=== PATIENT | male | born 1990 | race Caucasian/White ===

== ENCOUNTER 2020-03-11 14:47 | Outpatient (REF) | payer OTHER, SELFPAY | END 2020-03-11 14:48 | disposition home or self-care (01) | LOC: HO.LAB 14:47 | PROVIDERS: Visit Provider Internal Medicine | DX: Z20.828 Contact with and (suspected) exposure to other viral communicable diseases (principal) | CPT/HCPCS: C9803; U0003 ==

== ENCOUNTER 2020-03-20 11:56 | Outpatient (REF) | payer OTHER, SELFPAY | END 2020-03-20 11:57 | disposition home or self-care (01) | LOC: HO.LAB 11:56 | PROVIDERS: Visit Provider Internal Medicine | DX: Z20.828 Contact with and (suspected) exposure to other viral communicable diseases (principal) | CPT/HCPCS: C9803; U0003 ==

== ENCOUNTER 2020-04-08 12:18 | Outpatient (REF) | payer OTHER, SELFPAY | END 2020-04-08 12:19 | disposition home or self-care (01) | LOC: HO.LAB 12:18 | PROVIDERS: Visit Provider Internal Medicine | DX: Z20.828 Contact with and (suspected) exposure to other viral communicable diseases (principal) | CPT/HCPCS: 36415; C9803; U0003 ==

== ENCOUNTER 2020-08-22 10:01 | Outpatient (REF) | payer OTHER, SELFPAY ==
[2020-08-22 12:10] LABS: MANUAL DIFF FLAG NO
[2020-08-22 12:17] LABS: Basophils Percent Auto 0.3 % (0-2); Eosinophils Absolute Auto 0.1 X10*3/uL (0.0-0.4); Hematocrit 43.7 % (42-52); Hemoglobin 14.6 g/dl (14.0-18.0); Imm Gran Abs Auto 0.01 X10*3/uL (0.00-0.03); Imm Gran Pct Auto 0.2 % (0.0-0.4); Lymphocytes Percent Auto 34.1 % (20-40); Mean Corpuscular HGB Conc 33.4 g/dl (31.0-36.0); Mean Corpuscular Hemoglobin 29.8 pg (27.0-33.0); Mean Corpuscular Volume 89.2 fL (80-98); Mean Platelet Volume 9.4 fL (9.4-12.4); Monocytes Absolute Auto 0.4 X10*3/uL (0.1-1.2); Monocytes Percent Auto 6.7 % (2-11); Neutrophils Absolute Auto 3.4 X10*3/uL (2.0-8.3); Neutrophils Percent Auto 57.7 % (45-73); Platelet Count 236 X10*3/uL (160-400); Red Cell Distribution Width 12.7 % (11.0-16.0); White Blood Count 5.9 X10*3/uL (4.8-10.8)
[2020-08-22 12:34] LABS: Estimated Average Glucose 97 mg/dL
[2020-08-22 12:36] LABS: Alanine Aminotransferase 25 U/L (0-40); Albumin Level 4.5 g/dL (3.5-5.0); Alkaline Phosphatase 77 U/L (39-117); Anion Gap 11 (12-20); Aspartate Amino Transferase 17 U/L (5-37); Bilirubin Total 0.6 mg/dL (0.0-1.0); Blood Urea Nitrogen 10 mg/dL (9-16); C Reactive Protein 0.43 mg/dL (< or = 0.50); Calcium 9.6 mg/dL (8.4-10.2); Carbon Dioxide 28 mmol/L (22-29); Chloride 104 mmol/L (96-108); Cholesterol 167 mg/dL; Estimated Glomerular Filt Rate > 60; Glucose Fasting 84 mg/dL (60-99); HDL Cholesterol 33 mg/dL; Iron 77 mcg/dL (45-160); LDL Cholesterol Calculated 114 mg/dl; Percent Iron Saturation 19 % (15-50); Potassium 4.3 mmol/L (3.3-5.1); Sodium 139 mmol/L (135-145); Total Iron Binding Capacity 405 mcg/dL (228-428); Total Protein 7.2 g/dL (6.5-8.0); Triglycerides 102 mg/dL; Unsaturated Iron Binding 328 ug/dL
[2020-08-22 12:59] LABS: Ferritin 34 ng/mL (20-250); TSH reflex Free T4 0.92 uIU/mL (0.32-4.0); Vitamin D 25-OH Total 29.8 ng/mL (>30)
[2020-08-22 13:09] LABS: Folate 9.8 ng/mL (> or = 4.0); Vitamin B12 280 pg/mL (200-900)
[2020-08-23 07:07] LABS: Insulin Level Total 18.4 uIU/mL
[2020-08-24 10:36] LABS: Calcium (PTHI) 9.6 mg/dL (8.6-10.3); PTHI 60 pg/mL (14-64)
[2020-08-26 02:57] LABS: Zinc 71 mcg/dL (60-130)
[2020-08-27 10:42] LABS: Vitamin A 48 mcg/dL (38-98)
[2020-08-29 07:22] LABS: Vitamin B1 11 nmol/L (8-30)
== END 2020-08-22 10:02 | disposition home or self-care (01) ==
LOC: HO.LAB 10:01
PROVIDERS: PCP Internal Medicine; Visit Provider Physician Assistant
DX: F32.9 Major depressive disorder, single episode, unspecified (principal); F41.9 Anxiety disorder, unspecified; F17.210 Nicotine dependence, cigarettes, uncomplicated; F50.9 Eating disorder, unspecified; K21.9 Gastro-esophageal reflux disease without esophagitis; E66.01 Morbid (severe) obesity due to excess calories; Z79.899 Other long term (current) drug therapy; Z68.38 Body mass index [BMI] 38.0-38.9, adult
CPT/HCPCS: 36415; 80053; 80061; 82306; 82607; 82728; 82746; 83036; 83525; 83540; 83970; 84425; 84443; 84590; 84630; 85025; 86140